=== PATIENT | male | born 1970 | race Caucasian/White ===

== ENCOUNTER 2021-02-12 20:25 | Inpatient (IN) | payer MEDICAID ==
[~2021-02-12] VITALS: Ht 175.3 cm; Wt 78.9 kg
[2021-02-12] MEDS ORDERED: CHOLESTEROL MED PO (20:36)
[2021-02-12] MEDS ORDERED: norvasc PO (20:36)
[2021-02-12] MEDS ORDERED: CARV6.25 PO (20:36)
[2021-02-12] MEDS ORDERED: PANTOPRAZOLE SODIUM 40 MG VIAL ONE (20:41)
[2021-02-12] MEDS ORDERED: PANTOPRAZOLE SODIUM 40 MG VIAL IV ONE (20:45)
[2021-02-12 20:50] LABS: BASOPHILS # (AUTO) 0.1 K/uL (0.0-8.0); BASOPHILS % (AUTO) 0.8 % (0.0-2.0); EOSINOPHILS # (AUTO) 0.3 K/uL (0.0-0.7); EOSINOPHILS % (AUTO) 3.4 % (0.0-7.0); HEMATOCRIT 44.7 % (36.7-47.1); HEMOGLOBIN 15.3 g/dL (12.5-16.3); LYMPHOCYTES # (AUTO) 4.8 K/uL (20.0-40.0); LYMPHOCYTES % (AUTO) 52.9 % (20.5-51.5); MEAN CORPUSCULAR HEMOGLOBIN 31.6 uug (23.8-33.4); MEAN CORPUSCULAR HGB CONC 34 g/dL (32.5-36.3); MONOCYTES # (AUTO) 0.7 K/uL (2.0-10.0); MONOCYTES % (AUTO) 7.7 % (0.0-11.0); NEUTROPHILS # (AUTO) 3.2 K/uL (1.8-8.9); NEUTROPHILS % (AUTO) 35.2 % (38.5-71.5); PLATELET COUNT (AUTO) 309 K/uL (152-348); RED BLOOD CELL COUNT(AUTO) 4.85 MIL/uL (4.06-5.63); WHITE BLOOD COUNT (AUTO) 9.2 K/uL (3.6-10.2)
[2021-02-12 20:51] LABS: *BILIRUBIN,URIN NEGATIVE (NEGATIVE); *BLOOD, URINE NEGATIVE (NEGATIVE); *CLARITY,URINE CLEAR (CLEAR); *COLOR,URINE YELLOW (YELLOW); *KETONES,URINE NEGATIVE (NEGATIVE); *UROBILINOGEN,URINE 0.2 E.U./dl (NORMAL); LEUKOCYTE ESTERASE ,URINE NEGATIVE (NEGATIVE); NITRITE, URINE NEGATIVE (NEGATIVE); UGLUCOSE NEGATIVE (NEGATIVE)
[2021-02-12 20:55] LABS: CREATININE 0.8 mg/dL (0.6-1.3); POTASSIUM 3.5 mmol/L (3.5-5.1)
[2021-02-12 21:02] LABS: BILIRUBIN,DIRECT 0.1 mg/dL (0.0-0.2); BILIRUBIN,TOTAL 0.3 mg/dL (0.2-1.0); TOTAL PROTEIN, SERUM 8.1 g/dL (6.4-8.2)
[2021-02-12] MEDS ORDERED: ASPIRIN 81 MG TAB.CHEW PO ONE (21:15)
[2021-02-12] MEDS ORDERED: NITROGLYCERIN OINT 1 GM PACKET TP ONE ×2 (21:15→21:25)
[2021-02-12] MEDS ORDERED: ASPIRIN 81 MG TAB.CHEW ONE (21:25)
[2021-02-12] MEDS ORDERED: METOPROLOL TARTRATE 5 MG/5 ML VIAL IVP ONE ×2 (21:30→21:42)
[2021-02-12] MEDS ORDERED: Z GUARD REMEDY PASTE 57 GM TUBE TOP PRN (22:45)
[2021-02-12] MEDS ORDERED: HYDROCODONE/APAP 5-325MG TABLET PO PRN (22:45)
[2021-02-12] MEDS ORDERED: ZOLPIDEM 5 MG TABLET PO PRN (22:45)
[2021-02-12] MEDS ORDERED: ACETAMINOPHEN 325 MG TABLET PO PRN (22:45)
[2021-02-12] MEDS ORDERED: ONDANSETRON 4 MG/2 ML VIAL IV PRN (22:45)
[2021-02-12] MEDS ORDERED: MAGNESIUM HYDROXIDE 30 ML LIQUID UDC PO PRN (22:45)
[2021-02-12] MEDS ORDERED: ENOXAPARIN SODIUM 40 MG/0.4 ML DISP.SYRIN SQ SCH (22:45)
[2021-02-13 04:00] VITALS: BP 147/65
[2021-02-13 06:50] LABS: BASOPHILS # (AUTO) 0.1 K/uL (0.0-8.0); BASOPHILS % (AUTO) 0.9 % (0.0-2.0); EOSINOPHILS # (AUTO) 0.2 K/uL (0.0-0.7); EOSINOPHILS % (AUTO) 3.4 % (0.0-7.0); HEMATOCRIT 40.9 % (36.7-47.1); HEMOGLOBIN 13.7 g/dL (12.5-16.3); LYMPHOCYTES # (AUTO) 3.3 K/uL (20.0-40.0); LYMPHOCYTES % (AUTO) 47.3 % (20.5-51.5); MEAN CORPUSCULAR HEMOGLOBIN 30.9 uug (23.8-33.4); MEAN CORPUSCULAR HGB CONC 33 g/dL (32.5-36.3); MEAN CORPUSCULAR VOLUME 92.5 fL (73.0-96.2); MONOCYTES # (AUTO) 0.5 K/uL (2.0-10.0); MONOCYTES % (AUTO) 7.4 % (0.0-11.0); NEUTROPHILS # (AUTO) 2.8 K/uL (1.8-8.9); PLATELET COUNT (AUTO) 278 K/uL (152-348); RED BLOOD CELL COUNT(AUTO) 4.42 MIL/uL (4.06-5.63); WHITE BLOOD COUNT (AUTO) 6.9 K/uL (3.6-10.2)
[2021-02-13] MEDS ORDERED: PANTOPRAZOLE SODIUM 40 MG TABLET.DR PO SCH (07:00)
[2021-02-13 07:06] LABS: BILIRUBIN,TOTAL 0.4 mg/dL (0.2-1.0); CREATININE 0.9 mg/dL (0.6-1.3); MAGNESIUM 2.4 mg/dL (1.8-2.4); PHOSPHOROUS 4.8 mg/dL (2.5-4.9); POTASSIUM 3.7 mmol/L (3.5-5.1)
[2021-02-13] MEDS ORDERED: CARVEDILOL 6.25 MG TABLET PO SCH (08:00)
[2021-02-13] MEDS ORDERED: NITROGLYCERIN 0.4 MG/TAB BOTTLE SL PRN ×2 (08:15)
[2021-02-13] MEDS ORDERED: MORPHINE SULFATE IR 30 MG TABLET PO ONE (08:30)
[2021-02-13] MEDS ORDERED: MORPHINE SULFATE 20 MG/1 ML ORAL LIQ. PO ONE (08:45)
[2021-02-13] MEDS ORDERED: ASPIRIN EC 325 MG TABLET.DR PO SCH (09:00)
[2021-02-13] MEDS ORDERED: NITROGLYCERIN OINT 1 GM PACKET TP SCH (09:00)
[2021-02-13] MEDS ORDERED: LOSARTAN POTASSIUM 50 MG TABLET PO SCH (09:00)
[2021-02-13] MEDS ORDERED: ENOXAPARIN SODIUM 80 MG/0.8 ML DISP.SYRIN SQ SCH (11:00)
[2021-02-13] MEDS ORDERED: ASPI-610 PO (11:29)
[2021-02-13] MEDS ORDERED: ATOR40TA PO (11:29)
[2021-02-13] MEDS ORDERED: NITR1OIN2 TP (11:29)
[2021-02-13] MEDS ORDERED: LOSA50TA3 PO (11:29)
[2021-02-13] MEDS ORDERED: CARV6.252 PO (11:29)
[2021-02-13] MEDS ORDERED: ENOX80DI SQ (11:29)
[2021-02-13 11:45] VITALS: BP 117/77
[2021-02-13] MEDS ORDERED: ATORVASTATIN 40 MG TABLET PO SCH (21:00)
== END 2021-02-13 12:55 | disposition short-term general hospital (02) | DRG 190 ==
LOC: ER 20:26 → TELE3 22:27
PROVIDERS: ADMIT Hospitalist; ATTEND Hospitalist
DX: I21.4 Non-ST elevation (NSTEMI) myocardial infarction (principal); E78.5 Hyperlipidemia, unspecified; I25.2 Old myocardial infarction; Z82.49 Family history of ischemic heart disease and other diseases of the circulatory system; Z79.82 Long term (current) use of aspirin; Z98.61 Coronary angioplasty status; I10 Essential (primary) hypertension; I25.119 Atherosclerotic heart disease of native coronary artery with unspecified angina pectoris; Z20.822 Contact with and (suspected) exposure to COVID-19; R73.9 Hyperglycemia, unspecified; R74.01 Elevation of levels of liver transaminase levels; Z79.899 Other long term (current) drug therapy; I25.10 Atherosclerotic heart disease of native coronary artery without angina pectoris
CPT/HCPCS: 36415; 70030-TC; 71045; 83690; 83735; 84100; 85025; 93005; A4663; C9113; G0378; J1650; J3490

== ENCOUNTER 2021-03-19 13:12 | Emergency (ER) | payer MEDICAID ==
[~2021-03-19] VITALS: Ht 175.3 cm; Wt 106.6 kg
[~2021-03-19 13:12] MED LIST: ASPI-610 PO; ATOR40TA PO; CARV6.25 PO; CARV6.252 PO; CHOLESTEROL MED PO; ENOX80DI SQ; LOSA50TA3 PO; NITR1OIN2 TP; norvasc PO
--- NOTE | 2021-03-19 13:30 | NUR ---
at bedside for assessment
[2021-03-19 13:44] LABS: HEMATOCRIT 36.7 % (36.7-47.1); MEAN CORPUSCULAR HEMOGLOBIN 29.3 uug (23.8-33.4); MEAN CORPUSCULAR VOLUME 90.4 fL (73.0-96.2); PLATELET COUNT (AUTO) 353 K/uL (152-348)
[2021-03-19] MEDS ORDERED: MAGN400T8 PO (13:50)
[2021-03-19] MEDS ORDERED: METO25TA6 PO (13:50)
[2021-03-19] MEDS ORDERED: ATOR80TA PO (13:50)
[2021-03-19] MEDS ORDERED: DOCU100C36 PO (13:50)
[2021-03-19] MEDS ORDERED: DILT30TA35 PO (13:50)
[2021-03-19] MEDS ORDERED: CLOP75TA15 PO (13:50)
[2021-03-19] MEDS ORDERED: ASPI-869 PO (13:50)
[2021-03-19] MEDS ORDERED: OXYC5TAB3 PO (13:50)
[2021-03-19] MEDS ORDERED: LOSA25TA27 PO (13:50)
[2021-03-19] MEDS ORDERED: METF-440 PO (13:50)
[2021-03-19 13:56] LABS: CREATININE 0.8 mg/dL (0.6-1.3); POTASSIUM 3.5 mmol/L (3.5-5.1)
[2021-03-19] MEDS ORDERED: ASPIRIN 81 MG TAB.CHEW PO ONE ×2 (14:15→15:00)
--- NOTE | 2021-03-19 14:53 | NUR ---
Patient complaints of chest pain 1 month post heart surgery, noted at bedside, patient appears comfortable at this time
[2021-03-19] MEDS ORDERED: ASPIRIN 81 MG TAB.CHEW ONE (14:55)
--- NOTE | 2021-03-19 16:50 | NUR ---
Patient taken downstair for CTA of chest, consent signed, refusing covid swab at this time
[2021-03-19] MEDS ORDERED: IV NORMAL SALINE 250 ML IV ONE (16:53)
[2021-03-19] MEDS ORDERED: IOHEXOL 350 100 ML INFUS..BTL ONE (16:53)
--- NOTE | 2021-03-19 17:34 | NUR ---
Patient continues to rest in bed, no signs of acute distress noted
--- NOTE | 2021-03-19 18:25 | NUR ---
Patient discharged to home in stable condition. No signs of acute distress, took all belongings, IV removed.Written and verbal after care instructions given. Patient verbalizes understanding of instructions. Stressed follow up or return to ER for worsening s/s.
[2021-03-19 18:47] VITALS: BP 148/82
== END 2021-03-19 18:25 | disposition left against medical advice (07) ==
LOC: ER 13:13
DX: R07.9 Chest pain, unspecified (principal); R00.0 Tachycardia, unspecified; Z79.02 Long term (current) use of antithrombotics/antiplatelets; I25.10 Atherosclerotic heart disease of native coronary artery without angina pectoris; Z95.1 Presence of aortocoronary bypass graft; E78.5 Hyperlipidemia, unspecified; I11.0 Hypertensive heart disease with heart failure; I50.9 Heart failure, unspecified; I31.3 Pericardial effusion (noninflammatory); I25.2 Old myocardial infarction; E11.9 Type 2 diabetes mellitus without complications; Z79.84 Long term (current) use of oral hypoglycemic drugs; Z79.899 Other long term (current) drug therapy; Z82.49 Family history of ischemic heart disease and other diseases of the circulatory system; R79.1 Abnormal coagulation profile
CPT/HCPCS: 36415; 71045; 71275; 80048; 83880; 84484; 85025; 85379; 93005; 99285; Q9967; 70030-TC; A4663; J7030; J7050